=== PATIENT | female | born 1955 | race Caucasian/White ===

== ENCOUNTER 2017-11-25 14:33 | Emergency (ER) | payer OTHER ==
--- OUTSIDE RECORDS SUMMARY | 2017-11-25 14:38 | XMS REPORT ---
:1955 External Reference #:[id number] Author Organization [employer] Address [address] [place] [address] [place] [address] Phone [phone] Care Team Providers Name Role Phone Gia Addison MD Primary Care Physician Unavailable Payers Type Date Identification Numbers Payment Provider Subscriber Commercial Policy Number: [id number] [employer] Terri Garrett Group Number: [id number] [address] PayID: [id number] [place] [address] Workers Effective: Policy Number: [employer] Compensation 2017 [id number] Rhea Garrett Onset: 2017 Group Name: [phone] Fax [address] PayID: CAMERON Jiménez [id number] Medigap Part B Expires: 2016 Policy Number: [employer] Terri Garrett [id number] Group Number: [id number] [address] Group Name: [place] [address] PayID: [id number] Problems Description No Information Family History Date Family Member(s) Problem(s) Comments General Cancer General Heart Disease General Hypertension Social History Type Date Description Comments Smoking Patient has never smoked Allergies, Adverse Reactions, Alerts Date Description Reaction Status Severity Comments 04/09/2014 NKDA active Medications Medication Date Status Form Strength Qnty SIG Indications Ordering Provider Tylenol With Active Tablets 300-30mg 30tabs 1 tab by Dolores Moses #3 018 kelly Rai M.D. every 4-6 hours as needed pain Alprazolam Active Tablets 0.5mg Unknown 000 Citalopram Active Tablets 20mg 1 by Unknown Hydrobromide 000 mouth every day No Active Hx Unknown Medications 014 - 016 Medications Administered in Office Medication Date Status Form Strength Qnty SIG Indications Ordering Provider Depomedrol Administered Injection Dolores 40MG 018 Darin Rai Depomedrol Administered Injection Dolores 40MG 017 Darin Rai Depomedrol Administered Injection Dolores 40MG 016 Darin Rai Depomedrol Administered Injection Dolores 40MG 016 Darin Rai Depomedrol Administered Injection Dolores 80MG 015 Darin Rai Depomedrol Administered Injection Dolores 80MG 014 Darin Rai Vital Signs Date Vital Result Comment 11/21/2017 Height 63.50 inches 5'3.50" Weight 139.00 lb BP Systolic 120 mmHg BP Diastolic 68 mmHg Respiratory Rate 16 /min Body Temperature 96.8 F Pain Level 5 BMI (Body Mass Index) 24.2 kg/m2 07/16/2017 Height 63.50 inches 5'3.50" Heart Rate 67 /min BP Systolic 118 mmHg BP Diastolic 70 mmHg Respiratory Rate 16 /min Body Temperature 97.7 F Pain Level 3 06/14/2017 Height 63.50 inches 5'3.50" Weight 140.00 lb Heart Rate 61 /min Respiratory Rate 14 /min Body Temperature 98.6 F Pain Level 5 BMI (Body Mass Index) 24.4 kg/m2 05/30/2017 Height 63.50 inches 5'3.50" Weight 140.00 lb Heart Rate 68 /min Respiratory Rate 15 /min Body Temperature 98.1 F Pain Level 5 BMI (Body Mass Index) 24.4 kg/m2 01/11/2017 Height 63.50 inches 5'3.50" Weight 136.00 lb Heart Rate 68 /min BP Systolic 120 mmHg BP Diastolic 72 mmHg Respiratory Rate 16 /min Body Temperature 96.2 F Pain Level 4 BMI (Body Mass Index) 23.7 kg/m2 05/11/2016 Height 63 inches 5'3" Weight 130.00 lb Heart Rate 59 /min BP Systolic 141 mmHg BP Diastolic 81 mmHg Respiratory Rate 19 /min Pain Level 1 BMI (Body Mass Index) 23.0 kg/m2 04/05/2016 Height 64 inches 5'4" Weight 128.00 lb Respiratory Rate 16 /min Pain Level 5 BMI (Body Mass Index) 22.0 kg/m2 06/16/2015 Height 64 inches 5'4" Weight 142.00 lb Pain Level 4 BMI (Body Mass Index) 24.4 kg/m2 12/14/2014 Height 64 inches 5'4" Weight 142.00 lb Heart Rate 59 /min BP Systolic 131 mmHg BP Diastolic 84 mmHg BMI (Body Mass Index) 24.4 kg/m2 04/09/2014 Height 63 inches 5'3" Weight 145.00 lb Heart Rate 63 /min BP Systolic 122 mmHg BP Diastolic 80 mmHg BMI (Body Mass Index) 25.7 kg/m2 Results Test Date Test Result H/L Range Note CBC Auto Diff 11/01/2012 White Blood Count 6.7 10^3/uL 4.8-10.8 Red Blood Count 4.33 10^6/uL 4.0-5.4 Hemoglobin 13.4 g/dL 12.0-16.0 Hematocrit 41 % 35-47 Mean Corpuscular Volume 94 fL 80-97 Mean Corpuscular Hemoglobin 31 pg 27-31 Mean Corpuscular HGB Conc 33 g/dL 31-36 Red Cell Distribution Width 14 % 10.5-15 Platelet Count 325 10^3/uL 150-450 Mean Platelet Volume 9 um3 7.4-10.4 Abs Neutrophils 4.1 10^3/uL 1.5-7.7 Abs Lymphocytes 1.7 10^3/uL 1.0-4.8 Abs Monocytes 0.7 10^3/uL 0-0.8 Abs Eosinophils 0.2 10^3/uL 0-0.6 Abs Basophils 0 10^3/uL 0-0.2 Abs Nucleated RBC 0 10^3/uL Granulocyte % 60.2 % 38-83 Lymphocyte % 24.9 % Low 25-47 Monocyte % 10.7 % High 1-9 Eosinophil % 3.5 % 0-6 Basophil % 0.7 % 0-2 Nucleated Red Blood Cells % 0 Arthritis Panel 11/01/2012 Erythrocyte Sed Rate 26 mm/Hr 0-30 Uric Acid 6.1 mg/dL 2.6-7.2 Jessica (Anti-Nuclear AB) Screen Reflexed to FA Negative Rheumatoid Factor <15 IU/mL <15 1 Jessica Hep-2 11/01/2012 Jessica Pattern Nucleolar Negative Jessica Titer 1:80 <1:80 Jessica Reviewed By MD Chace Acevedo <SEE NOTE> 2 1 Test Performed by: [address] [address] Preventive Maintenance Engineer: Cirilo Hoffman III, M.D. 2 Chace Chan Procedures Date CPT Code Description Status Comment 11/21/2017 54449 Inject/Drain Joint/Bursa Small W/O US Completed 07/16/2017 90073 Inject Tendon Sheath Or Ligament Aponeurosis Eg Completed Plantar Fascia 05/30/2017 96468 CLST TRMT Distal Radial FX Completed 04/13/2017 35446 Colonoscopy Flexible W/Biopsy Completed 04/13/2017 Colonoscopy Completed 01/11/2017 Inject/Drain Joint/Bursa Small W/O US Completed 04/05/2016 03699 Inject/Drain Joint/Bursa Small W/O US Completed 06/16/2015 80459 Inject/Drain Joint/Bursa Small W/O US Completed 12/14/2014 10161 Inject/Drain Joint/Bursa Small W/O US Completed 04/09/2014 12266 Inject Tendon Sheath Or Ligament Aponeurosis Eg Completed Plantar Fascia 10/31/2012 70377 Rad Exam; Hand Comp Completed 10/31/2012 37132 Rad Exam; Hand Comp Completed RT Encounters Type Date Location Provider CPT E/M Dx Office Visit 05/11/2016 [facility], [address]14 S86.112A 10:40a Of Rosa CHAUDHARY M62.89 Office Visit 04/09/2014 11:15a [facility], 59477 716.94 Rosa Webster Office Visit 01/15/2013 11:00a [facility] Wes Cruz, 06781 723.0 Of Inna Webster Office Visit 12/12/2012 10:00a [facility], 58927 354.8 CJamesMJohnny Webster Office Visit 10/31/2012 9:15a [facility] 90069 354.0 C.MJamesA. M.D. 716.84 Plan of Care 11/21/2017 - Dolores Rai M.D.M18.12 Unil primary osteoarth of first carpometacarp joint, l handFollow up:Follow up: As needed
[2017-11-25 14:40] VITALS: BP 147/83
--- NOTE | 2017-11-25 14:55 | UC ---
Skin Complaint HPI - HPI Summary HPI Summary: 62 y/o female presents to the urgent care c/o a red rash above the left knee she noticed yesterday, but this morning is bigger. Pt is concerned w/ Lyme disease since her has it. She usually works in the [employer], she noticed yesterday she was bit by something. she is not sure if it was an insect or a tick. This morning she also had body aches. Pt denies fever, HENDERSON, SOB, chest pain , abdominal pain, N/V/D. [place] is going out of the [place] 2 days and she wants to make sure she doesn't have Lyme disease. - History of Current Complaint Chief Complaint: UCBackPain Time Seen by Provider: 11/25/17 14:54 Stated Complaint: RASH Hx Obtained From: Patient ?: No - menopausal Onset/Duration: Gradual Onset, Lasting Days - 1 day, Still Present, Worse Since - today Skin Exposure Onset/Duration: Days Ago - 1 day Timing: Constant Onset Severity: Mild Current Severity: Mild Pain Intensity: 4 Pain Scale Used: 0-10 Numeric Location: Discrete - left knee rash Character: Swelling, Redness, Painful Aggravating Factor(s): Touch Alleviating Factor(s): Nothing Associated Signs & Symptoms: Positive: Rash, Tenderness. Negative: Fever, Chills Related History: Possible Reaction to: Insect - Allergy/Home Medications Allergies/Adverse Reactions: Allergies Allergy/AdvReac Type Severity Reaction Status Date / Time No Known Allergies Allergy Verified 11/25/17 14:41 Review of Systems Constitutional: Negative Skin: Rash - above left knee red rash Eyes: Negative ENT: Negative Respiratory: Negative Cardiovascular: Negative Gastrointestinal: Negative Genitourinary: Negative Motor: Negative Neurovascular: Negative Musculoskeletal: Negative Neurological: Negative Psychological: Negative Is Patient Immunocompromised?: No All Other Systems Reviewed And Are Negative: Yes PMH/Surg Hx/FS Hx/Imm Hx Previously Healthy: Yes Psychological History: Anxiety - Surgical History Surgical History: Yes Surgery Procedure, Year, and Place: Rt KNEE ARTHROSCOPIC- 1995 - Family History Known Family History: Positive: Cardiac Disease - Social History Occupation: Retired Lives: With Family Alcohol Use: Daily Substance Use Type: None Smoking Status (MU): Never Smoked Tobacco Physical Exam - Summary Physical Exam Summary: Vital Signs Reviewed: Yes General: well developed, well nourished female sitting in the examining table w/ o any apparent distress. Eyes: Positive: Conjunctiva Clear - PERRLA, EOMI ENT: Positive: Normal ENT inspection, Hearing grossly normal, Pharynx normal, TMs normal Neck: Positive: Supple, Nontender, No Lymphadenopathy Respiratory: Positive: Chest nontender, Lungs clear, Normal breath sounds Cardiovascular: Positive: RRR, No Murmur, Pulses Normal Abdomen Description: Positive: Nontender, No Organomegaly, Soft. Negative: CVA Tenderness (R), CVA Tenderness (L) Bowel Sounds: Positive: Present Musculoskeletal: Positive: Strength Intact, ROM Intact, No Edema Neurological Exam: Normal Psychological Exam: Normal Skin: Positive: rashes - Positive lateral side distal left thigh w/ erythematous patch w/ indistinct borders about 2.0x3.0 cm w/ a discrete insect bite in the center, warm to touch, swelling and mild tender to palpation. Triage Information Reviewed: Yes Vital Signs: Initial Vital Signs Temp 98.9 F 11/25/17 14:37 Pulse 72 11/25/17 14:37 Resp 18 11/25/17 14:37 BP 147/83 11/25/17 14:37 Pulse Ox 98 11/25/17 14:37 Course/Dx - Course Course Of Treatment: 62 y/o female presents to the urgent care c/o a red rash above the left knee she noticed yesterday, but this morning is bigger. Pt is concerned w/ Lyme disease since her has it. She usually works in the [employer], she noticed yesterday she was bit by something. she is not sure if it was an insect or a tick. This morning she also had body aches. Pt denies fever, HENDERSON, SOB, chest pain, abdominal pain, N/V/D. She is going out of the country in 2 days and she wants to make sure she doesn't have Lyme disease. Hx obtained. Pt w/ cellulitis above the distal lateral side of left leg on examination. Pt Rx Keflex PO. rash demarcated with a skin marker and Advised if rash doubles in size and if she develops fever to go to the ER for further treatment. Pt's BP today elevated w/o Hx of HTN. Pt advised to decrease salt in diet and monitor BP at home if it continues to be elevated to f/u with PCP for further management. Pt understood and agreed. - Differential Diagnoses - Skin Complaint Differential Diagnoses: Abscess, Cellulitis, MRSA, Tick Born Illness - Diagnoses Provider Diagnoses: 1- RT thigh cellulitis. 2- elevated BP w/o Hx of HTN Discharge - Sign-Out/Discharge Documenting (check all that apply): Discharge/Admit/Transfer - D/c home - Discharge Plan Condition: Stable Disposition: HOME Prescriptions: Cephalexin CAP* [Keflex CAP*] 500 mg PO TID #21 cap Patient Education Materials: Cellulitis (ED), Low-Sodium Diet (ED) Referrals: Gia Henriquez MD [Primary Care Provider] - 3 Days Additional Instructions: 1-Please take full course of Antibiotic. 2- If redness and swelling doubles in size after 48 hrs of taking antibiotic and fever develops please go to the ER immediately. 3-Avoid standing for long periods , stella rash clean and dry. 4-Please F/u with your PCP in 3 days for further evaluation and treatment. 5-Your BP is elevated today. please decrease salt in your diet, monitor BP and if it continues to be elevated please f/u with your PCP for further management - Billing Disposition and Condition Condition: STABLE Disposition: Home
== END 2017-11-25 15:22 | disposition home or self-care (01) ==
LOC: UCEAST 14:33
DX: L03.115 Cellulitis of right lower limb (principal); R03.0 Elevated blood-pressure reading, without diagnosis of hypertension
CPT/HCPCS: 99212; G0463